=== PATIENT | female | born 1980 | race American Indian/Alaskan Native ===

== ENCOUNTER 2021-05-08 16:48 | Emergency (ER) | payer BC, OTHER ==
[2021-05-08] MEDS ORDERED: ACETAMINOPHEN 500 MG TAB ONE (17:35)
--- NOTE | 2021-05-08 18:10 | RAD REPORT ---
EXAM DESCRIPTION: RAD - Chest Single View - 05/08/2021 5:56 pm CLINICAL HISTORY: COUGH COMPARISON: None TECHNIQUE: AP portable chest image was obtained 05/08/2021 5:56 pm . FINDINGS: Dense breast soft tissue increases lower lung field density. Patchy alveolar opacities are present in the lung parenchyma peripheral in distribution. No large or dense area of consolidation i dentifiable. No mass lesions seen. There is no cavitation. Heart and vasculature are normal. No measu rable pleural effusion and no pneumothorax. No acute bony abnormality seen. No acute aortic findings suspected. IMPRESSION: Bilateral peripheral pneumonia pattern present. In the current clinical environment, COVID-19 pneumonia would be a primary consideration and needs co rrelation with history and testing.
--- NOTE | 2021-05-08 19:14 | ER ---
Nurse's Notes [facility] Name: Ramesh Sher Age: 41 yrs Sex: Female : 1980 Arrival Date: 05/08/2021 Time: 16:48 Bed Waiting Private MD: Diagnosis: Coronavirus infection, unspecified;Viral pneumonia, unspecified Presentation: 05/08 17:05 Chief complaint: Patient states: cough, nausea, fatigue and fever that began 10 days ss ago. Pt reports her has Covid and her Mother is ill. Coronavirus screen: Client presents with at least one sign or symptom that may indicate coronavirus-19. Ebola Screen: Patient denies exposure to infectious person. Patient denies travel to an Ebola-affected area in the 21 days before illness onset. Initial Sepsis Screen: Does the patient meet any 2 criteria? No. Patient's initial sepsis screen is negative. Does the patient have a suspected source of infection? Yes: Productive cough/pneumonia. Risk Assessment: Do you want to hurt yourself or someone else? Patient reports no desire to harm self or others. Onset of symptoms was April 28, 2021. 17:05 Method Of Arrival: Ambulatory ss 17:05 Acuity: DULCE 3 ss FIELD TECH: 19:19 LMP N/A - iw Historical: - Allergies: 17:08 No Known Allergies; ss - Home Meds: 17:08 None [Active]; ss - PMHx: 17:08 None; ss - Immunization history:: Client reports having NOT received the Covid vaccine. - Social history:: Smoking status: Patient denies any tobacco usage or history of. Screenin:16 Abuse screen: Denies threats or abuse. Denies injuries from another. Nutritional iw screening: No deficits noted. Tuberculosis screening: No symptoms or risk factors identified. Fall Risk None identified. Assessment: 19:16 General: Appears in no apparent distress. Behavior is calm, cooperative. General: iw Reports fever for feeling ill for fatigue for. Neuro: Level of Consciousness is awake, alert, obeys commands. Respiratory: Reports cough that is. Derm: Skin is intact, is healthy with good turgor. Musculoskeletal: Range of motion: intact in all extremities. Vital Signs: 17:08 BP 116 / 66; Pulse 74; Resp 19; Temp 101.8(O); Pulse Ox 98% on R/A; Weight 61.23 kg; ss Height 5 ft. 6 in. (167.64 cm); Pain 10/10; 19:16 Temp 99.8(TE); iw 17:08 Body Mass Index 21.79 (61.23 kg, 167.64 cm) ED Course: 16:48 Patient arrived in ED. ds1 17:08 Triage completed. ss 17:09 Arm band placed on right wrist. ss 17:56 XRAY Chest (1 view) In Process Unspecified. EDMS 18:36 Katie Fay FNP-C is PHCP. kb 18:36 Alex Flower MD is Attending Physician. kb 19:15 No provider procedures requiring assistance completed. Patient did not have IV access iw during this emergency room visit. 19:19 Patient has correct armband on for positive identification. iw Administered Medications: 17:14 Drug: Tylenol 1000 mg Route: PO; ss 19:16 Follow up: Response: No adverse reaction; Temperature is decreased iw Outcome: 19:13 Discharge ordered by MD. kb 19:18 Discharged to home ambulatory. iw 19:18 Condition: good 19:18 Discharge instructions given to patient, Instructed on discharge instructions, follow up and referral plans. Demonstrated understanding of instructions, follow-up care. 19:19 Patient left the ED. iw Signatures: Dispatcher [employer] EDME Katie Fay FNP-C FNP-Rhoda Grimes ds1 Tania Ford, MONIQUE AMAYA Jennifer Perdomo RN RN
--- NOTE | 2021-05-08 19:14 | EDPHYS ---
Physician Documentation [facility] Name: Ramesh Sher Age: 41 yrs Sex: Female : 1980 Arrival Date: 05/08/2021 Time: 16:48 Bed Waiting Private MD: ED Physician Alex Flower HPI: 05/09 00:49 This 41 yrs old Other Female presents to ER via Ambulatory with complaints of Fever, kb Cough. 00:50 The patient or guardian reports cough, difficulty breathing, flu symptoms, arthralgias, kb low-grade fever, myalgias. Onset: The symptoms/episode began/occurred 10 day(s) ago. Severity of symptoms: At their worst the symptoms were moderate, in the emergency department the symptoms are unchanged. Modifying factors: The symptoms are alleviated by nothing, the symptoms are aggravated by nothing. Associated signs and symptoms: Pertinent positives: fever, rhinorrhea. The patient has not experienced similar symptoms in the past. The patient has not recently seen a physician. Patient reports Covid symptoms for 10 days. States she was just trying to ride it out at home but thought she would be better by now.. DIRECTOR OF ONLINE MERCHANDISING: 05/08 19:19 LMP N/A - iw Historical: - Allergies: 17:08 No Known Allergies; ss - Home Meds: 17:08 None [Active]; ss - PMHx: 17:08 None; ss - Immunization history:: Client reports having NOT received the Covid vaccine. - Social history:: Smoking status: Patient denies any tobacco usage or history of. ROS: 05/09 00:49 Abdomen/GI: Negative for abdominal pain, nausea, vomiting, diarrhea, and constipation. kb Constitutional: Positive for body aches, chills, fatigue, fever, malaise. ENT: Positive for rhinorrhea. Respiratory: Positive for cough, shortness of breath. Neuro: Positive for headache. All other systems are negative. Exam: 00:49 Constitutional: This is a well developed, well nourished patient who is awake, alert, kb and in no acute distress. Head/Face: Normocephalic, atraumatic. ENT: Moist Mucous membranes Cardiovascular: Regular rate and rhythm with a normal S1 and S2. No gallops, murmurs, or rubs. No pulse deficits. Respiratory: Respirations even and unlabored. No increased work of breathing, no retractions or nasal flaring. Abdomen/GI: Soft, non-tender. No distention Skin: Warm, dry with normal turgor. Normal color. MS/ Extremity: Pulses equal, no cyanosis. Neurovascular intact. Full, normal range of motion. Neuro: Awake and alert, GCS 15, oriented to person, place, time, and situation. Moves all extremities. Normal gait. Psych: Awake, alert, with orientation to person, place and time. Behavior, mood, and affect are within normal limits. Vital Signs: 05/08 17:08 BP 116 / 66; Pulse 74; Resp 19; Temp 101.8(O); Pulse Ox 98% on R/A; Weight 61.23 kg; ss Height 5 ft. 6 in. (167.64 cm); Pain 10/10; 19:16 Temp 99.8(TE); iw 17:08 Body Mass Index 21.79 (61.23 kg, 167.64 cm) ss MDM: 19:12 Patient medically screened. kb 05/09 00:49 Data reviewed: vital signs, nurses notes. Data interpreted: Pulse oximetry: on room air kb is 98 %. Interpretation: normal. Counseling: I had a detailed discussion with the patient and/or guardian regarding: the historical points, exam findings, and any diagnostic results supporting the discharge/admit diagnosis, lab results, radiology results, the need for outpatient follow up, a family practitioner, to return to the emergency department if symptoms worsen or persist or if there are any questions or concerns that arise at home. 05/08 19:03 Order name: SARS-COV-2 RT PCR; Complete Time: 19:12 EDMS 05/08 17:10 Order name: XRAY Chest (1 view); Complete Time: 18:37 ss Administered Medications: 05/08 17:14 Drug: Tylenol 1000 mg Route: PO; ss 19:16 Follow up: Response: No adverse reaction; Temperature is decreased iw Disposition: 05/09 13:25 Co-signature as Attending Physician, Alex Flower MD I agree with the assessment and rn plan of care. Attestation: The patient's history, exam findings, diagnostics, and a summary of any interventions or procedures was reviewed in detail with Katie HONEYCUTT. Disposition Summary: 05/08/21 19:13 Discharge Ordered Location: Home kb Condition: Stable kb Diagnosis - Coronavirus infection, unspecified kb - Viral pneumonia, unspecified kb Followup: kb - With: Emergency Department - When: As needed - Reason: Worsening of condition Followup: kb - With: Private Physician - When: 2 - 3 days - Reason: Recheck today's complaints, Continuance of care, Re-evaluation by your physician Discharge Instructions: - Discharge Summary Sheet kb - Viral Respiratory Infection, [id number] kb - COVID-19 kb Forms: - Medication Reconciliation Form kb - Thank You Letter kb - Antibiotic Education kb - Prescription Opioid Use kb Signatures: Dispatcher [employer] EDMS Katie Fay, VISUAL MERCHANDISING SPECIALIST-C VISUAL MERCHANDISING SPECIALIST-Shaqb Alex Flower MD MD rn Smirch, Shelby, RN RN Tania Redd RN Corrections: (The following items were deleted from the chart) 05/08 18:01 17:11 CORONAVIRUS+BRZ ordered. EDMN EDMN
[2021-05-08 19:55] VITALS: BP 116/66; O2SAT 98
[2021-05-08 19:58] VITALS: TEMP 99.8
== END 2021-05-08 19:19 | disposition home or self-care (01) ==
LOC: ER 16:48
DX: U07.1 COVID-19 (principal); J12.9 Viral pneumonia, unspecified
CPT/HCPCS: 71045; 99283; U0003

== ENCOUNTER 2021-05-09 01:32 | Emergency (ER) | payer BC ==
--- NOTE | 2021-05-09 01:57 | EDPHYS ---
Physician Documentation [facility] Name: Ramesh Sher Age: 41 yrs Sex: Female : 1980 Arrival Date: 05/09/2021 Time: 01:34 Bed Waiting Private MD: ED Physician Vickie Douglas HPI: 05/09 02:17 This 41 yrs old Other Female presents to ER via Unassigned with complaints of Shortness kb Of Breath, Fever, Nausea/Vomiting. 02:17 The patient or guardian reports cough, difficulty breathing, flu symptoms, low-grade kb fever, myalgias. Onset: The symptoms/episode began/occurred 10 day(s) ago. Severity of symptoms: At their worst the symptoms were moderate, in the emergency department the symptoms are unchanged. Modifying factors: The symptoms are alleviated by nothing, the symptoms are aggravated by nothing. Associated signs and symptoms: Pertinent positives: fever, nausea, vomiting. The patient has not experienced similar symptoms in the past. The patient has been recently seen at the [facility] Emergency Department, today, by me, for similar complaints. Patient reports Covid symptoms for 10 days. Was seen today, tested for and diagnosed with Covid. States she started having nausea and vomiting when she got home. Also concerned because she still running fever. Reports cough is worse when she tried to lay down. Historical: - Allergies: 02:49 No Known Allergies; em - PMHx: 02:49 None; em - PSHx: 02:49 None; em - Social history:: Smoking status: Patient denies any tobacco usage or history of. ROS: 02:16 Cardiovascular: Negative for chest pain, palpitations, and edema. kb 02:16 Constitutional: Positive for body aches, chills, fatigue, fever, malaise. 02:16 Respiratory: Positive for cough, shortness of breath. 02:16 Abdomen/GI: Positive for nausea and vomiting. 02:16 Neuro: Positive for headache. 02:16 All other systems are negative. Exam: 02:16 Constitutional: This is a well developed, well nourished patient who is awake, alert, kb and in no acute distress. Head/Face: Normocephalic, atraumatic. ENT: Moist Mucous membranes Cardiovascular: Regular rate and rhythm with a normal S1 and S2. No gallops, murmurs, or rubs. No pulse deficits. Respiratory: Respirations even and unlabored. No increased work of breathing, no retractions or nasal flaring. Skin: Warm, dry with normal turgor. Normal color. MS/ Extremity: Pulses equal, no cyanosis. Neurovascular intact. Full, normal range of motion. Neuro: Awake and alert, GCS 15, oriented to person, place, time, and situation. Moves all extremities. Normal gait. Psych: Awake, alert, with orientation to person, place and time. Behavior, mood, and affect are within normal limits. Vital Signs: 02:15 BP 102 / 60; Pulse 69; Resp 16; Temp 100.4; Pulse Ox 98% on R/A; em 02:18 BP 102 / 60; Pulse 69; Resp 20; Temp 100.4; Pulse Ox 98% ; kb MDM: 01:52 Patient medically screened. kb 02:15 Data reviewed: vital signs, nurses notes. Data interpreted: Pulse oximetry: on room air kb is 98 %. Interpretation: normal. Counseling: I had a detailed discussion with the patient and/or guardian regarding: the historical points, exam findings, and any diagnostic results supporting the discharge/admit diagnosis, the need for outpatient follow up, a family practitioner, to return to the emergency department if symptoms worsen or persist or if there are any questions or concerns that arise at home. 02:16 ED course: Patient's oxygen saturation 97 to 98% on room air. Patient in no respiratory kb distress. Patient educated on fever treatment, disease process, symptomatic treatment.. 05/09 02:36 Order name: PO challenge sp3 Administered Medications: 02:34 Drug: Tylenol 1000 mg Route: PO; kb 02:34 Drug: Zofran (Ondansetron) 4 mg Route: PO; kb Disposition: 07:11 Co-signature as Attending Physician, Vickie Douglas I agree with the assessment and plan sp3 of care. Disposition Summary: 05/09/21 01:56 Discharge Ordered Location: Home kb Condition: Stable kb Diagnosis - Coronavirus infection, unspecified kb Followup: kb - With: Emergency Department - When: As needed - Reason: Worsening of condition Followup: kb - With: Private Physician - When: 2 - 3 days - Reason: Recheck today's complaints, Continuance of care, Re-evaluation by your physician Discharge Instructions: - Discharge Summary Sheet kb - Viral Respiratory Infection, [id number] kb - COVID-19 kb Forms: - Medication Reconciliation Form kb - Thank You Letter kb - Antibiotic Education kb - Prescription Opioid Use kb Prescriptions: - Zofran 4 mg Oral Tablet - take 1 tablet by ORAL route every 6 hours As needed; 20 tablet; Refills: 0, kb Product Selection Permitted Signatures: Katie Fay, River Little, RN RN Vickie Kidd sp3
[2021-05-09] MEDS ORDERED: ONDANSETRON 4 MG (ODT) TAB ONE ×2 (02:20→02:25)
[2021-05-09] MEDS ORDERED: ACETAMINOPHEN 500 MG TAB ONE (02:20)
--- NOTE | 2021-05-09 02:51 | ER ---
Nurse's Notes [facility] Name: Ramesh Sher Age: 41 yrs Sex: Female : 1980 Arrival Date: 05/09/2021 Time: 01:34 Bed Waiting Private MD: Diagnosis: Coronavirus infection, unspecified Presentation: 05/09 02:15 Chief complaint: Patient states: seen earlier, diagnosed with covid, states cough is em worse, she has had N/V since discharge. 02:15 Method Of Arrival: Ambulatory em 02:15 Coronavirus screen: Client denies travel out of the [place] in the last 14 days. Ebola em Screen: Patient negative for fever greater than or equal to 101.5 degrees Fahrenheit, and additional compatible Ebola Virus Disease symptoms Patient denies exposure to infectious person. Patient denies travel to an Ebola-affected area in the 21 days before illness onset. No symptoms or risks identified at this time. Initial Sepsis Screen: Does the patient meet any 2 criteria? RR > 20 per min. Does the patient have a suspected source of infection? Yes:. Risk Assessment: Do you want to hurt yourself or someone else? Patient reports no desire to harm self or others. Onset of symptoms. 02:15 Acuity: DULCE 3 em Historical: - Allergies: 02:49 No Known Allergies; em - PMHx: 02:49 None; em - PSHx: 02:49 None; em - Social history:: Smoking status: Patient denies any tobacco usage or history of. Screenin:50 Abuse screen: Denies threats or abuse. Nutritional screening: No deficits noted. em Tuberculosis screening: No symptoms or risk factors identified. Fall Risk None identified. Vital Signs: 02:15 BP 102 / 60; Pulse 69; Resp 16; Temp 100.4; Pulse Ox 98% on R/A; em 02:18 BP 102 / 60; Pulse 69; Resp 20; Temp 100.4; Pulse Ox 98% ; kb ED Course: 01:34 Patient arrived in ED. wm 01:52 Katie Fay FNP-C [facility]. kb 01:52 Vickie Douglas is Attending Physician. kb 02:46 River Romero, RN is Primary Nurse. em 02:49 Triage completed. em 02:49 Arm band placed on. em 02:50 Patient has correct armband on for positive identification. em 02:50 No provider procedures requiring assistance completed. Patient did not have IV access em during this emergency room visit. Administered Medications: 02:34 Drug: Tylenol 1000 mg Route: PO; kb 02:34 Drug: Zofran (Ondansetron) 4 mg Route: PO; kb Outcome: 01:56 Discharge ordered by MD. kb 02:50 Discharged to home ambulatory. em 02:50 Condition: good 02:50 Discharge instructions given to patient, Instructed on discharge instructions, follow up and referral plans. Demonstrated understanding of instructions, follow-up care. 02:50 Patient left the ED. em Signatures: Katie Fay, [employer] BIOINFORMATICS COMPUTER SCIENTIST-River Stallworth, RN RN Rima Arndt
[2021-05-09 03:14] VITALS: BP 102/60; TEMP 100.4; O2SAT 98
== END 2021-05-09 02:50 | disposition home or self-care (01) ==
LOC: ER 01:32
DX: U07.1 COVID-19 (principal)
CPT/HCPCS: 99283